=== PATIENT | male | born 1990 | race Caucasian/White ===

== ENCOUNTER 2019-09-10 07:14 | Emergency (ER) | payer BC ==
[2019-09-10] MEDS ORDERED: MORPHINE SULFATE INJ 10 MG/ML VIAL IV ONE (07:31)
[2019-09-10] MEDS ORDERED: ONDANSETRON INJ 4 MG/2 ML VIAL IV ONE (07:31)
--- NOTE | 2019-09-10 07:38 | ED.PDOC ---
History of Present Illness - General Chief Complaint: General Stated Complaint: left axialla pain Time Seen by Provider: 09/10/19 07:25 Source: patient, RN notes reviewed, Vital Signs reviewed Exam Limitations: no limitations - History of Present Illness Initial Comments: Patient is a 28-year-old male with no past medical history. He reports onset of left-sided chest pain and left axillary pain at 130 this morning. He denies any injury, trauma to the area. Denies any redness or swelling to the left upper extremity. Pain is worse with palpation of the left chest and axillary area. He denies shortness of breath, fever, rash or any recent bug bites. Allergies/Adverse Reactions: Allergies NO KNOWN ALLERGY Allergy (Verified 09/10/19 07:31) Home Medications: Ambulatory Orders Doxycycline (Monohydrate) [Doxycycline Monohydrate] 100 mg PO BID 10 Days #20 tab 09/10/19 Review of Systems - Review of Systems Constitutional: Denies: chills, fever EENTM: Denies: ear pain, nose pain, nose congestion Respiratory: Denies: cough, short of breath Cardiology: States: chest pain. Denies: edema, palpitations Gastrointestinal/Abdominal: Denies: abdominal pain, nausea, vomiting Genitourinary: States: no symptoms reported Musculoskeletal: States: other - Left axillary pain Skin: Denies: change in color, lesions, rash Neurological: Denies: headache, paresthesia All other Systems: Reviewed and Negative Family Medical History - Family History Mother Family History: No Known Physical Exam - Physical Exam General Appearance: Alert, Comfortable, No apparent distress Ears, Nose, Throat: normal ENT inspection Neck: non-tender, full range of motion, supple Respiratory: lungs clear, normal breath sounds, no respiratory distress, other - Tender to palpation to left chest wall and left axilla. There are palpable lymph nodes in the left axilla. There is no erythema or rash to the chest or left upper extremity. Cardiovascular/Chest: regular rate, rhythm, no edema, no murmur Peripheral Pulses: radial,right: 2+, radial,left: 2+ Gastrointestinal/Abdominal: non tender, soft, no pulsatile mass Back Exam: no CVA tenderness, no vertebral tenderness Extremity: normal range of motion, other - No edema to the left upper extremity. Tender to palpation to the left axilla with palpable lymph nodes. No bug bites or erythema noted. Left shoulder elbow wrist and hand are nontender to palpation and has full range of motion without pain. Neurologic: no motor/sensory deficits, alert, normal mood/affect, oriented x 3 Skin Exam: normal color Progress - Progress Progress: 09/10/19 07:42 Differential diagnosis includes but is not limited to lymphadenopathy, cellulitis, DVT, pulmonary embolism, acute coronary syndrome, pneumonia, pneumothorax. 09/10/19 08:49 Patient presents with 1 day history of left-sided chest wall and left axillary pain. He is tender to palpation in the left axilla and there are palpable lymph nodes in this area. There is no erythema or rash to the left chest wall or left upper extremity. He has 2+ radial pulse and 5 out of 5 strength in bilateral upper extremities. D-dimer sent to evaluate for PE or DVT and is negative. He has no tachycardia or difficulty breathing to suggest PE and no left upper extremity edema to suggest DVT. Chest x-ray, labs and vital signs are all reassuring. Will treat with doxycycline for lymphadenopathy. I have asked him to follow-up with his PCP within 1 week for continued evaluation. I discussed with patient today cannot completely rule out a diagnosis such as leukemia and he will need further testing if symptoms do not resolve with prescribed therapy. - Results/Orders Results/Orders: EKG: NSR, rate 74, nml intervals, no ST abnormality CHEST XRAY No acute pulmonary findings 09/10/19 07:30 IV:Start .ONCE 09/10/19 07:45 EKG .ONCE Laboratory Results - last 24 hr 09/10/19 09/10/19 09/10/19 07:50 07:50 07:50 WBC 10.8 RBC 5.57 Hgb 15.9 Hct 46.4 MCV 83.4 MCH 28.5 MCHC 34.2 RDW 13.5 Plt Count 225 MPV 9.3 Absolute Neuts (auto) 8.50 H Absolute Lymphs (auto) 1.50 Absolute Monos (auto) 0.70 Absolute Eos (auto) 0.10 Absolute Basos (auto) 0.00 Neutrophils % 78.0 Lymphocytes % 13.9 L Monocytes % 6.5 Eosinophils % 1.3 Basophils % 0.3 D-Dimer, Quantitative 196.0 Sodium 137 Potassium 4.0 Chloride 105 Carbon Dioxide 25 Anion Gap 11.0 L BUN 12 Creatinine 0.93 BUN/Creatinine Ratio 12.9 Random Glucose 112 H Serum Osmolality 274.3 L Calcium 8.9 Total Bilirubin 0.7 AST 20 ALT 28 Alkaline Phosphatase 78 Troponin I Serum Total Protein 7.0 Albumin 4.4 Globulin 2.6 Albumin/Globulin Ratio 1.7 09/10/19 07:50 WBC RBC Hgb Hct MCV MCH MCHC RDW Plt Count MPV Absolute Neuts (auto) Absolute Lymphs (auto) Absolute Monos (auto) Absolute Eos (auto) Absolute Basos (auto) Neutrophils % Lymphocytes % Monocytes % Eosinophils % Basophils % D-Dimer, Quantitative Sodium Potassium Chloride Carbon Dioxide Anion Gap BUN Creatinine BUN/Creatinine Ratio Random Glucose Serum Osmolality Calcium Total Bilirubin AST ALT Alkaline Phosphatase Troponin I < 0.02 Serum Total Protein Albumin Globulin Albumin/Globulin Ratio Departure - Departure Clinical Impression: Atypical chest pain, Lymphadenopathy Time of Disposition: 08:44 Disposition: Discharge to Home or Self Care Condition: Good Departure Forms: ED Discharge - Pt. Copy, Patient Portal Self Enrollment Instructions: Lymphadenitis (DC) Diet: resume usual diet Activity: increase activity as tolerated Prescriptions: Doxycycline (Monohydrate) [Doxycycline Monohydrate] 100 mg PO BID 10 Days #20 tab Home Medications: Ambulatory Orders Doxycycline (Monohydrate) [Doxycycline Monohydrate] 100 mg PO BID 10 Days #20 tab 09/10/19
--- NOTE | 2019-09-10 07:55 | RAD ---
EXAMINATION: Chest x-ray one view. INDICATION: Chest pain. COMPARISON: None TECHNIQUE: Frontal radiograph chest. FINDINGS: The cardiac silhouette is normal in size. No focal consolidative process or pulmonary edema. There is no pneumothorax. IMPRESSION: No acute pulmonary findings. Electronically signed by: Jay Bailon MD 09/10/2019 7:54 AM CDT
[2019-09-10 08:00] VITALS: TEMP 97.8; O2SAT 97
[2019-09-10] MEDS ORDERED: ACETAMINOPHEN W/COD #3 TAB 1 EA TAB ONE (09:14)
[2019-09-10] MEDS ORDERED: ACETAMINOPHEN W/COD #3 TAB 1 EA TAB PO ONE (09:19)
[2019-09-10 10:30] VITALS: BP 132/68
== END 2019-09-10 09:32 | disposition home or self-care (01) ==
LOC: ER 07:14
DX: R07.89 Other chest pain (principal); R59.1 Generalized enlarged lymph nodes
CPT/HCPCS: 36415; 71045; 80053; 84484; 85025; 85379; 93005; J2270; J2405